=== PATIENT | male | born 1960 | race Caucasian/White ===

== ENCOUNTER 2017-01-21 00:06 | Emergency (ER) | payer MEDICARE, OTHER ==
[~2017-01-21] VITALS: Ht 185.4 cm; Wt 67.0 kg
[~2017-01-21 00:06] MED LIST: ATAZ300C PO; RITO100T; [UNRECOGNIZED DRUG - OTHER]
[2017-01-21] MEDS ORDERED: ATAZ1TAB PO (00:57)
[2017-01-21] MEDS ORDERED: ONDANSETRON ODT 4 MG ONE (01:22)
[2017-01-21] MEDS ORDERED: HYDROcodone/APAP 5/325 TABLET ONE (01:22)
[2017-01-21] MEDS ORDERED: HYDROcodone/APAP 5/325 TABLET PO ONE (01:30)
[2017-01-21] MEDS ORDERED: ONDANSETRON ODT 4 MG PO ONE (01:30)
[2017-01-21 02:29] VITALS: BP 132/78
== END 2017-01-21 02:46 | disposition home or self-care (01) ==
LOC: ED 02:40
DX: N43.3 Hydrocele, unspecified (principal); I86.1 Scrotal varices
CPT/HCPCS: 74020; 76857; 76870; 81003; 99285; Q0162

== ENCOUNTER 2019-11-10 14:47 | Inpatient (IN) | payer OTHER ==
[~2019-11-10] VITALS: Ht 182.9 cm; Wt 69.8 kg
[~2019-11-10 14:47] MED LIST changes: +ATAZ1TAB PO
--- NOTE | 2019-11-10 15:20 | NUR ---
PT FROM TRIAGE WITH RAPID RESPIRATIONS, COUGH AND OXYGEN SATURATION 86 ON RA. PT PLACED ON NC 4L AND RESPONDED WELL WITH OXYGEN SATURATION 92. PT SPEAKING IN FULL SENTENCES, OCCASIONAL COUGH. FRIEND AT BEDSIDE.
[2019-11-10] MEDS ORDERED: SODIUM CHLORIDE 0.9% 1,000ML IVBOLUS ONE (16:00)
[2019-11-10] MEDS ORDERED: SODIUM CHLORIDE FLUSH 10ML SYR IVF ONE (16:00)
[2019-11-10] MEDS ORDERED: CEFTRIAXONE PMX 1GM/50ML 50 ML IV ONE (16:30)
[2019-11-10] MEDS ORDERED: AZITHROMYCIN 500 MG in SODIUM CHLORIDE 0.9% 250 ML IV ONE (16:30)
[2019-11-10 16:32] LABS: MEAN CORPUSCULAR HEMOGLOBIN 29.4 pg (27.5-34.5); MEAN CORPUSCULAR HGB CONC 32.5 g/dL (33.2-36.2); MEAN CORPUSCULAR VOLUME 90.2 fL (81-97); MEAN PLATELET VOLUME 9.5 fL (7.4-10.4); PLATELET COUNT 407 x10^3/uL (130-400); RED BLOOD COUNT 4.64 x10^6/uL (4.38-5.82); RED CELL DISTRIBUTION WIDTH 15.9 % (9.4-14.8)
[2019-11-10 16:36] LABS: ALANINE AMINOTRANSFERASE 34 U/L (12-78); ALBUMIN 1.5 g/dL (3.4-5.0); ANION GAP 5 mmol/L (5-15); CALCIUM 8.3 mg/dL (8.5-10.1); CHLORIDE 98 mmol/L (98-107); CREATININE 0.88 mg/dL (0.7-1.3)
[2019-11-10 16:38] LABS: ALKALINE PHOSPHATASE 197 U/L (45-117); BILIRUBIN,TOTAL 0.8 mg/dL (0.2-1.0); TOTAL PROTEIN 6.3 g/dL (6.4-8.2)
[2019-11-10 16:49] LABS: MD YES
[2019-11-10 16:56] LABS: BAND#(MANUAL) 2.95 x10^3/uL; BANDS%(MANUAL) 6 % (0-7); LYMPH#(MANUAL) 4.43 x10^3/uL (1-3.4); LYMPHS% (MANUAL) 9 % (22-44); METAMYELOCYTES# (MANUAL) 0.49 x10^3/uL (0-0); METAMYELOCYTES% (MANUAL) 1 % (0-1); MONOS#(MANUAL) 2.46 x10^3/uL (0.3-2.7); MONOS% (MANUAL) 5 % (2-9); SEG#(MANUAL) 38.87 x10^3/uL (1.8-6.8); SEGS% (MANUAL) 79 % (42-75)
[2019-11-10 16:57] LABS: ANISOCYTOSIS 1+; POLYCHROMASIA 1+
[2019-11-10 16:58] LABS: <PLATELET ESTIMATE> INCREASED; LARGE PLATELETS 1+; OVALOCYTES 1+
[2019-11-10] MEDS ORDERED: SODIUM CHLORIDE 0.9%, 500ML IVBOLUS ONE (17:00)
[2019-11-10] MEDS ORDERED: CEFTRIAXONE PMX 1GM/50ML 50 ML ONE (17:04)
--- NOTE | 2019-11-10 17:06 | NUR ---
THROUGHPUT RN: PT W/ ALF PLUS INSURANCE.SPOKE W/ DELORES FROM [facility] WHO DECLINED TRANSFER. SPOKE W/ PARAG FROM [facility] WHO DECLINED TRANSFER. PSN FAXED TO [phone]. CONFIRMATION RECEIVED.
--- NOTE | 2019-11-10 17:06 | NUR ---
INFECTIONS DISEASE MD AT BEDSIDE EXAMINING PT. NEGATIVE PRESSURE ON AND MD WEARING PAPPER
[2019-11-10] MEDS: NS + 20MEQ KCL 1,000 ML IV SCH (17:35)
[2019-11-10] MEDS ORDERED: ACETAMINOPHEN 325 MG TABLET PO PRN (18:00)
[2019-11-10] MEDS ORDERED: GUAIFENESIN/DM 200-20MG, 10ML UDC PO PRN (18:00)
[2019-11-10] MEDS ORDERED: BISACODYL 10 MG SUPP PR PRN (18:00)
[2019-11-10] MEDS ORDERED: ONDANSETRON ODT 4 MG PO PRN (18:00)
[2019-11-10] MEDS ORDERED: POLYETHYLENE GLYCOL 17 GM PACKET PO PRN (18:00)
--- NOTE | 2019-11-10 19:00 | NUR ---
REPORT TO LAURIE DEL RIO
[2019-11-10] MEDS ORDERED: AZITHROMYCIN 250 MG TABLET ONE (19:01)
[2019-11-10] MEDS ORDERED: NS + 20MEQ KCL 1,000 ML IV ONE (19:03)
[2019-11-10] MEDS ORDERED: ACETAMINOPHEN 325 MG TABLET ONE (19:11)
--- NOTE | 2019-11-10 19:11 | NUR ---
REPORT TO KELLY KIDD TO BE TRANSPORTED TO FLOOR.
[2019-11-10 19:50] VITALS: BP 114/67
[2019-11-10] MEDS: HEPARIN 5,000 UNITS/ML, 1ML SQ SCH (21:00)
[2019-11-10] MEDS: MORPHINE SULFATE 4 MG/ML, 1ML IVPush PRN (21:48)
[2019-11-10] MEDS ORDERED: ALBUTEROL SULFATE 2.5 MG/3 ML NPPB PRN (22:30)
[2019-11-10 22:31] LABS: MICROSCOPIC INDICATED
[2019-11-10 22:40] LABS: CULTURE INDICATED? NO
[2019-11-11 00:47] VITALS: BP 133/84
[2019-11-11 01:04] VITALS: BP 114/67
[2019-11-11] MEDS: NS + 20MEQ KCL 1,000 ML IV SCH ×2 (04:34→17:58)
[2019-11-11] MEDS: HEPARIN 5,000 UNITS/ML, 1ML SQ SCH ×3 (04:39→20:52)
[2019-11-11] MEDS ORDERED: SODIUM CHLORIDE INHALATION 7%, 4 ML NPPB ONE (06:00)
[2019-11-11] MEDS: ALBUTEROL SULFATE 2.5 MG/3 ML NPPB SCH ×4 (07:00→20:00)
[2019-11-11 07:13] LABS: MEAN CORPUSCULAR HEMOGLOBIN 29.7 pg (27.5-34.5); MEAN CORPUSCULAR HGB CONC 32.2 g/dL (33.2-36.2); MEAN PLATELET VOLUME 9.7 fL (7.4-10.4); PLATELET COUNT 393 x10^3/uL (130-400); RED BLOOD COUNT 4.34 x10^6/uL (4.38-5.82); RED CELL DISTRIBUTION WIDTH 16.1 % (9.4-14.8)
[2019-11-11 07:16] LABS: ALBUMIN 1.4 g/dL (3.4-5.0); ANION GAP 4 mmol/L (5-15); CALCIUM 8.1 mg/dL (8.5-10.1); CHLORIDE 102 mmol/L (98-107)
[2019-11-11 07:20] LABS: ALANINE AMINOTRANSFERASE 38 U/L (12-78); ALKALINE PHOSPHATASE 247 U/L (45-117); BILIRUBIN,TOTAL 0.7 mg/dL (0.2-1.0); CREATININE 0.82 mg/dL (0.7-1.3); TOTAL PROTEIN 5.8 g/dL (6.4-8.2)
[2019-11-11] MEDS: BICTEGRAV/EMTRICIT/TENOFOV ALA TAB PO SCH (08:16)
[2019-11-11] MEDS: SENNA/DOCUSATE TABLET PO SCH (08:17)
[2019-11-11] MEDS: AZITHROMYCIN 500 MG TABLET PO SCH (08:17)
[2019-11-11 08:21] VITALS: BP 109/66
[2019-11-11 08:21] LABS: MD YES
[2019-11-11 08:36] LABS: BANDS%(MANUAL) 5 % (0-7); LYMPH#(MANUAL) 1.44 x10^3/uL (1-3.4); LYMPHS% (MANUAL) 4 % (22-44); MONOS#(MANUAL) 0.36 x10^3/uL (0.3-2.7); MONOS% (MANUAL) 1 % (2-9); SEG#(MANUAL) 32.31 x10^3/uL (1.8-6.8); SEGS% (MANUAL) 90 % (42-75)
[2019-11-11 08:37] LABS: <PLATELET ESTIMATE> ADEQUATE; <PLT MORPHOLOGY> NORMAL PLT MORPH; ANISOCYTOSIS 1+; POLYCHROMASIA 1+; TOXIC GRAN 1+
[2019-11-11 11:46] VITALS: BP 121/72
[2019-11-11] MEDS: MORPHINE SULFATE 4 MG/ML, 1ML IVPush PRN ×2 (13:56→17:59)
[2019-11-11 14:06] VITALS: BP 110/72
[2019-11-11] MEDS: CEFTRIAXONE PMX 2GM/50ML 50 ML IV SCH (17:58)
[2019-11-11 20:36] VITALS: BP 116/78
[2019-11-12 01:39] VITALS: BP 112/57
[2019-11-12] MEDS: NS + 20MEQ KCL 1,000 ML IV SCH ×3 (04:10→23:41)
[2019-11-12] MEDS: HEPARIN 5,000 UNITS/ML, 1ML SQ SCH ×3 (04:37→20:29)
[2019-11-12 06:50] VITALS: BP 143/84
[2019-11-12] MEDS: ALBUTEROL SULFATE 2.5 MG/3 ML NPPB SCH ×4 (07:52→18:51)
[2019-11-12 08:27] LABS: MEAN CORPUSCULAR HEMOGLOBIN 29.7 pg (27.5-34.5); MEAN CORPUSCULAR HGB CONC 32.4 g/dL (33.2-36.2); MEAN CORPUSCULAR VOLUME 91.6 fL (81-97); MEAN PLATELET VOLUME 8.5 fL (7.4-10.4); PLATELET COUNT 470 x10^3/uL (130-400); RED BLOOD COUNT 4.15 x10^6/uL (4.38-5.82); RED CELL DISTRIBUTION WIDTH 16.1 % (9.4-14.8)
[2019-11-12 08:33] LABS: ALBUMIN 1.4 g/dL (3.4-5.0); ANION GAP 5 mmol/L (5-15); CALCIUM 7.7 mg/dL (8.5-10.1); CHLORIDE 101 mmol/L (98-107)
[2019-11-12 08:36] LABS: ALANINE AMINOTRANSFERASE 46 U/L (12-78); ALKALINE PHOSPHATASE 278 U/L (45-117); BILIRUBIN,TOTAL 0.5 mg/dL (0.2-1.0); CREATININE 0.81 mg/dL (0.7-1.3); TOTAL PROTEIN 5.9 g/dL (6.4-8.2)
[2019-11-12] MEDS: SENNA/DOCUSATE TABLET PO SCH (08:44)
[2019-11-12] MEDS: AZITHROMYCIN 500 MG TABLET PO SCH (08:44)
[2019-11-12] MEDS: MORPHINE SULFATE 4 MG/ML, 1ML IVPush PRN ×3 (08:44→20:29)
[2019-11-12] MEDS: BICTEGRAV/EMTRICIT/TENOFOV ALA TAB PO SCH (08:44)
[2019-11-12 09:24] LABS: MD YES
[2019-11-12 09:26] LABS: <PLATELET ESTIMATE> INCREASED; <PLT MORPHOLOGY> NORMAL PLT MORPH; ANISOCYTOSIS 1+; BAND#(MANUAL) 0.21 x10^3/uL; BANDS%(MANUAL) 1 % (0-7); LYMPH#(MANUAL) 1.44 x10^3/uL (1-3.4); LYMPHS% (MANUAL) 7 % (22-44); METAMYELOCYTES# (MANUAL) 0.21 x10^3/uL (0-0); METAMYELOCYTES% (MANUAL) 1 % (0-1); MONOS#(MANUAL) 1.03 x10^3/uL (0.3-2.7); MONOS% (MANUAL) 5 % (2-9); POLYCHROMASIA 1+; SEG#(MANUAL) 17.72 x10^3/uL (1.8-6.8); SEGS% (MANUAL) 86 % (42-75)
[2019-11-12 10:29] LABS: QUANTIFERON TB Ag1-NIL -0.02 (0.000-0.000)
[2019-11-12 12:22] VITALS: BP 131/75
[2019-11-12] MEDS: CEFTRIAXONE PMX 2GM/50ML 50 ML IV SCH (17:31)
[2019-11-12 19:57] VITALS: BP 134/64
[2019-11-13 01:09] VITALS: BP 133/77
[2019-11-13] MEDS: MORPHINE SULFATE 4 MG/ML, 1ML IVPush PRN ×3 (01:18→09:55)
[2019-11-13] MEDS: HEPARIN 5,000 UNITS/ML, 1ML SQ SCH ×3 (05:00→20:57)
[2019-11-13 06:06] LABS: BASOPHILS % (AUTO) 0 % (0-1); EOSINOPHILS # (AUTO) 0.38 x10^3/uL (0-0.4); EOSINOPHILS % (AUTO) 3 % (1-7); LYMPHOCYTES # (AUTO) 1.03 x10^3/uL (1-3.4); LYMPHOCYTES % (AUTO) 8 % (22-44); MD NO; MEAN CORPUSCULAR HEMOGLOBIN 29.3 pg (27.5-34.5); MEAN CORPUSCULAR HGB CONC 31.9 g/dL (33.2-36.2); MEAN CORPUSCULAR VOLUME 91.7 fL (81-97); MEAN PLATELET VOLUME 8.7 fL (7.4-10.4); MONOCYTES # (AUTO) 0.09 x10^3/uL (0.2-0.8); MONOCYTES % (AUTO) 1 % (2-9); NEUTROPHILS # (AUTO) 11.67 x10^3/uL (1.8-6.8); NEUTROPHILS % (AUTO) 89 % (42-75); PLATELET COUNT 508 x10^3/uL (130-400); RED BLOOD COUNT 4.08 x10^6/uL (4.38-5.82); RED CELL DISTRIBUTION WIDTH 16.4 % (9.4-14.8)
[2019-11-13 06:11] LABS: ALBUMIN 1.4 g/dL (3.4-5.0); ANION GAP 2 mmol/L (5-15); CALCIUM 8.1 mg/dL (8.5-10.1); CHLORIDE 103 mmol/L (98-107)
[2019-11-13 06:19] LABS: ALANINE AMINOTRANSFERASE 39 U/L (12-78); ALKALINE PHOSPHATASE 240 U/L (45-117); BILIRUBIN,TOTAL 0.4 mg/dL (0.2-1.0); CREATININE 0.74 mg/dL (0.7-1.3); TOTAL PROTEIN 6.1 g/dL (6.4-8.2)
[2019-11-13] MEDS: ALBUTEROL SULFATE 2.5 MG/3 ML NPPB SCH (07:00)
[2019-11-13 08:10] VITALS: BP 135/84
[2019-11-13] MEDS: SENNA/DOCUSATE TABLET PO SCH ×2 (09:00→09:56)
[2019-11-13] MEDS: BICTEGRAV/EMTRICIT/TENOFOV ALA TAB PO SCH (09:00)
[2019-11-13] MEDS: AZITHROMYCIN 500 MG TABLET PO SCH (09:55)
[2019-11-13] MEDS: NS + 20MEQ KCL 1,000 ML IV SCH (09:56)
[2019-11-13] MEDS ORDERED: HYDROcodone/APAP 5/325 TABLET PO PRN (10:00)
[2019-11-13] MEDS ORDERED: ALBUTEROL SULFATE 2.5 MG/3 ML NPPB PRN (11:00)
[2019-11-13 14:20] VITALS: BP 122/77
[2019-11-13] MEDS: CEFTRIAXONE PMX 2GM/50ML 50 ML IV SCH (17:58)
[2019-11-13 19:46] VITALS: BP 143/86
[2019-11-14 01:05] VITALS: BP 139/87
[2019-11-14] MEDS: HEPARIN 5,000 UNITS/ML, 1ML SQ SCH ×3 (05:00→19:59)
[2019-11-14 07:52] VITALS: BP 112/70
[2019-11-14 07:58] LABS: MEAN CORPUSCULAR HEMOGLOBIN 29.4 pg (27.5-34.5); MEAN CORPUSCULAR HGB CONC 31.9 g/dL (33.2-36.2); MEAN CORPUSCULAR VOLUME 92.3 fL (81-97); MEAN PLATELET VOLUME 8.1 fL (7.4-10.4); PLATELET COUNT 611 x10^3/uL (130-400); RED BLOOD COUNT 3.89 x10^6/uL (4.38-5.82); RED CELL DISTRIBUTION WIDTH 16.5 % (9.4-14.8)
[2019-11-14] MEDS: AZITHROMYCIN 500 MG TABLET PO SCH (07:58)
[2019-11-14] MEDS: BICTEGRAV/EMTRICIT/TENOFOV ALA TAB PO SCH (07:58)
[2019-11-14] MEDS: SENNA/DOCUSATE TABLET PO SCH (07:58)
[2019-11-14 08:09] LABS: ALANINE AMINOTRANSFERASE 39 U/L (12-78); ALBUMIN 1.5 g/dL (3.4-5.0); CHLORIDE 99 mmol/L (98-107)
[2019-11-14 08:12] LABS: ALKALINE PHOSPHATASE 195 U/L (45-117); BILIRUBIN,TOTAL 0.3 mg/dL (0.2-1.0); CREATININE 0.62 mg/dL (0.7-1.3); TOTAL PROTEIN 6.3 g/dL (6.4-8.2)
[2019-11-14 08:20] LABS: ANION GAP 5 mmol/L (5-15)
[2019-11-14 09:03] LABS: BASOPHILS # (AUTO) 0.01 x10^3/uL (0-0.1); BASOPHILS % (AUTO) 0 % (0-1); EOSINOPHILS # (AUTO) 0.19 x10^3/uL (0-0.4); EOSINOPHILS % (AUTO) 1 % (1-7); LYMPHOCYTES # (AUTO) 1.21 x10^3/uL (1-3.4); LYMPHOCYTES % (AUTO) 9 % (22-44); MD SCAN; MONOCYTES # (AUTO) 0.08 x10^3/uL (0.2-0.8); MONOCYTES % (AUTO) 1 % (2-9); NEUTROPHILS # (AUTO) 12.18 x10^3/uL (1.8-6.8); NEUTROPHILS % (AUTO) 89 % (42-75)
[2019-11-14 13:10] VITALS: BP 144/70
[2019-11-14] MEDS: CEFTRIAXONE PMX 2GM/50ML 50 ML IV SCH (16:46)
[2019-11-14 19:55] VITALS: BP 133/75
[2019-11-15 00:02] VITALS: BP 127/69
[2019-11-15] MEDS: HEPARIN 5,000 UNITS/ML, 1ML SQ SCH ×3 (04:54→21:00)
[2019-11-15 06:18] LABS: ANION GAP 3 mmol/L (5-15); CALCIUM 7.7 mg/dL (8.5-10.1); CHLORIDE 100 mmol/L (98-107); CREATININE 0.56 mg/dL (0.7-1.3)
[2019-11-15 06:23] LABS: BASOPHILS # (AUTO) 0.03 x10^3/uL (0-0.1); BASOPHILS % (AUTO) 0 % (0-1); EOSINOPHILS # (AUTO) 0.15 x10^3/uL (0-0.4); EOSINOPHILS % (AUTO) 1 % (1-7); LYMPHOCYTES # (AUTO) 1.37 x10^3/uL (1-3.4); LYMPHOCYTES % (AUTO) 11 % (22-44); MD NO; MEAN CORPUSCULAR HEMOGLOBIN 29.9 pg (27.5-34.5); MEAN CORPUSCULAR HGB CONC 32.8 g/dL (33.2-36.2); MEAN CORPUSCULAR VOLUME 91.3 fL (81-97); MEAN PLATELET VOLUME 8.3 fL (7.4-10.4); MONOCYTES # (AUTO) 0.38 x10^3/uL (0.2-0.8); MONOCYTES % (AUTO) 3 % (2-9); NEUTROPHILS # (AUTO) 10.17 x10^3/uL (1.8-6.8); NEUTROPHILS % (AUTO) 84 % (42-75); PLATELET COUNT 667 x10^3/uL (130-400); RED BLOOD COUNT 3.75 x10^6/uL (4.38-5.82); RED CELL DISTRIBUTION WIDTH 16.1 % (9.4-14.8)
[2019-11-15] MEDS: SENNA/DOCUSATE TABLET PO SCH (08:52)
[2019-11-15] MEDS: AZITHROMYCIN 500 MG TABLET PO SCH (08:52)
[2019-11-15] MEDS: BICTEGRAV/EMTRICIT/TENOFOV ALA TAB PO SCH (08:52)
[2019-11-15 09:18] VITALS: BP 109/69
[2019-11-15] MEDS ORDERED: DIPHENHYDRAMINE 50 MG CAPSULE PO PRN (10:00)
[2019-11-15] MEDS ORDERED: MELATONIN 5 MG TABLET PO PRN (10:00)
[2019-11-15 12:43] VITALS: BP 111/68
[2019-11-15] MEDS: CEFTRIAXONE PMX 2GM/50ML 50 ML IV SCH (16:56)
[2019-11-15 20:00] VITALS: BP 124/69
[2019-11-16 02:02] VITALS: BP 103/46
[2019-11-16 03:03] LABS: ANION GAP 1 mmol/L (5-15); CALCIUM 8.1 mg/dL (8.5-10.1); CHLORIDE 101 mmol/L (98-107); CREATININE 0.74 mg/dL (0.7-1.3)
[2019-11-16 03:04] LABS: MEAN CORPUSCULAR HEMOGLOBIN 29.4 pg (27.5-34.5); MEAN CORPUSCULAR HGB CONC 32.6 g/dL (33.2-36.2); MEAN CORPUSCULAR VOLUME 90.3 fL (81-97); MEAN PLATELET VOLUME 8.5 fL (7.4-10.4); PLATELET COUNT 771 x10^3/uL (130-400); RED BLOOD COUNT 3.77 x10^6/uL (4.38-5.82); RED CELL DISTRIBUTION WIDTH 15.9 % (9.4-14.8)
[2019-11-16 03:10] LABS: BASOPHILS # (AUTO) 0.23 x10^3/uL (0-0.1); BASOPHILS % (AUTO) 2 % (0-1); EOSINOPHILS # (AUTO) 0.14 x10^3/uL (0-0.4); EOSINOPHILS % (AUTO) 1 % (1-7); LYMPHOCYTES # (AUTO) 1.68 x10^3/uL (1-3.4); LYMPHOCYTES % (AUTO) 15 % (22-44); MD SCAN; MONOCYTES # (AUTO) 0.45 x10^3/uL (0.2-0.8); MONOCYTES % (AUTO) 4 % (2-9); NEUTROPHILS # (AUTO) 8.41 x10^3/uL (1.8-6.8); NEUTROPHILS % (AUTO) 77 % (42-75)
[2019-11-16] MEDS: HEPARIN 5,000 UNITS/ML, 1ML SQ SCH ×3 (05:00→20:07)
[2019-11-16 06:48] VITALS: BP 113/69
[2019-11-16] MEDS: SENNA/DOCUSATE TABLET PO SCH (09:00)
[2019-11-16] MEDS: BICTEGRAV/EMTRICIT/TENOFOV ALA TAB PO SCH (09:00)
[2019-11-16] MEDS: AZITHROMYCIN 500 MG TABLET PO SCH (10:11)
[2019-11-16 13:25] VITALS: BP 104/65
[2019-11-16] MEDS: CEFTRIAXONE PMX 2GM/50ML 50 ML IV SCH (17:38)
[2019-11-16 18:57] VITALS: BP 138/77
[2019-11-16 19:45] VITALS: BP 128/78
[2019-11-17 00:33] VITALS: BP 126/74
[2019-11-17] MEDS: HEPARIN 5,000 UNITS/ML, 1ML SQ SCH ×3 (04:32→20:42)
[2019-11-17 06:58] VITALS: BP 97/68
[2019-11-17] MEDS: AZITHROMYCIN 500 MG TABLET PO SCH (08:57)
[2019-11-17] MEDS: SENNA/DOCUSATE TABLET PO SCH (08:57)
[2019-11-17] MEDS: BICTEGRAV/EMTRICIT/TENOFOV ALA TAB PO SCH (08:57)
[2019-11-17] MEDS ORDERED: CEFD300C37 PO (14:28)
[2019-11-17] MEDS ORDERED: ALBU90AE INH (14:28)
[2019-11-17 14:45] VITALS: BP 114/69
[2019-11-17] MEDS: CEFTRIAXONE PMX 2GM/50ML 50 ML IV SCH (17:18)
[2019-11-17 21:17] VITALS: BP 98/63
[2019-11-18 01:58] VITALS: BP 99/69
[2019-11-18] MEDS: HEPARIN 5,000 UNITS/ML, 1ML SQ SCH (04:45)
[2019-11-18 07:03] VITALS: BP 95/62
[2019-11-18] MEDS: SENNA/DOCUSATE TABLET PO SCH (08:07)
[2019-11-18] MEDS: BICTEGRAV/EMTRICIT/TENOFOV ALA TAB PO SCH (08:08)
[2019-11-18] MEDS: AZITHROMYCIN 500 MG TABLET PO SCH (08:08)
== END 2019-11-18 13:33 | disposition home or self-care (01) | DRG 871 ==
LOC: ED 17:01 → EDIP 17:05 → 3N 19:40 → DCLOUNGE 11-18 13:14
PROVIDERS: ADMIT Internal Medicine; ATTEND Family Medicine
DX: A41.9 Sepsis, unspecified organism (principal); J96.01 Acute respiratory failure with hypoxia; J18.9 Pneumonia, unspecified organism; E43 Unspecified severe protein-calorie malnutrition; Z68.43 Body mass index [BMI] 50.0-59.9, adult; R45.851 Suicidal ideations; A15.9 Respiratory tuberculosis unspecified; E87.6 Hypokalemia; R62.7 Adult failure to thrive; R65.20 Severe sepsis without septic shock; Z21 Asymptomatic human immunodeficiency virus [HIV] infection status; T78.3XXA Angioneurotic edema, initial encounter; Z80.41 Family history of malignant neoplasm of ovary; Z88.0 Allergy status to penicillin; Z87.891 Personal history of nicotine dependence; Z91.14 Patient's other noncompliance with medication regimen; Z99.81 Dependence on supplemental oxygen
CPT/HCPCS: 36415; 36600; 71045; 71250; 76700; 80048; 80053; 81001; 82803; 83605; 83615; 83735; 84100; 84145; 85025; 86361; 86480; 86738; 87015; 87040; 87070; 87116; 87205; 87206; 87449; 87536; 93005; 94640; 96374; 99291; G0378; J0456; J0696; J1644; J3480; J7613; J2270; J7030; J7040; J7050

== ENCOUNTER 2020-10-14 09:19 | Emergency (ER) | payer OTHER ==
[~2020-10-14 09:19] MED LIST changes: +ALBU90AE INH; +CEFD300C37 PO
== END 2020-10-14 09:31 | disposition left against medical advice (07) ==
LOC: ED 09:25
DX: Z53.21 Procedure and treatment not carried out due to patient leaving prior to being seen by health care provider (principal)